=== PATIENT | female | born 1965 | race Two or more races ===

== ENCOUNTER 2021-06-19 07:45 | Inpatient (IN) | payer OTHER ==
[~2021-06-19] VITALS: Ht 175.3 cm; Wt 103.0 kg
[2021-06-19] MEDS ORDERED: NORVASC2.5 M1 PO (08:31)
[2021-06-19] MEDS ORDERED: LIPITOR40 MG PO (08:31)
[2021-06-19] MEDS ORDERED: PREVACID30 M1 PO (08:31)
[2021-06-19] MEDS ORDERED: AVALIDE 300-121 EACH PO (08:31)
[2021-06-19] MEDS ORDERED: SEROQUEL50 MG PO (08:32)
[2021-06-19] MEDS ORDERED: XANAX1 MG PO (08:32)
[2021-06-19] MEDS ORDERED: LYRICA50 MG PO (13:48)
[2021-06-24] MEDS ORDERED: ESCITALOPRAM OX20 MG (08:02)
[2021-06-24] MEDS ORDERED: LORATADINE10 MG (08:03)
[2021-06-24] MEDS ORDERED: MAXIMUM D3325 MCG (08:03)
[2021-06-24] MEDS ORDERED: SENNA8.6 MG (08:03)
[2021-06-24] MEDS ORDERED: FLONASE16 GM (08:03)
[2021-06-24] MEDS ORDERED: MONTELUKAST SOD10 MG (08:03)
[2021-06-24] MEDS ORDERED: IRBESARTAN-HCT1 EACH (08:03)
[2021-06-24] MEDS ORDERED: ARIPIPRAZOLE2 MG (08:04)
[2021-06-24] MEDS ORDERED: AMITRIPTYLINE H10 MG (08:04)
[2021-06-27] MEDS ORDERED: ELIQUIS2.5 MG PO (07:22)
[2021-06-27] MEDS ORDERED: PERCOCET 5-3251 EACH PO (07:22)
[2021-06-27] MEDS ORDERED: CEFADROXIL500 MG PO (07:22)
== END 2021-06-27 12:16 | DRG 470 ==
LOC: SURH 06-24 06:40 → O/R 06-24 06:40 → SURH 06-24 07:00
PROVIDERS: ADMIT Orthopaedic Surgery; ATTEND Orthopaedic Surgery
PROC: 0SRD0J9 Replacement of Left Knee Joint with Synthetic Substitute, Cemented, Open Approach (ICD-10-PCS; principal; 2021-06-24 07:00)
DX: M17.12 Unilateral primary osteoarthritis, left knee (principal); D62 Acute posthemorrhagic anemia; M22.12 Recurrent subluxation of patella, left knee; E66.01 Morbid (severe) obesity due to excess calories; I10 Essential (primary) hypertension; G47.33 Obstructive sleep apnea (adult) (pediatric); Z20.822 Contact with and (suspected) exposure to COVID-19

== ENCOUNTER 2022-03-24 11:11 | Emergency (ER) | payer OTHER ==
[~2022-03-24] VITALS: Ht 175.3 cm; Wt 96.2 kg
[~2022-03-24 11:11] MED LIST: AMITRIPTYLINE H10 MG; ARIPIPRAZOLE2 MG; AVALIDE 300-121 EACH PO; CEFADROXIL500 MG PO; ELIQUIS2.5 MG PO; ESCITALOPRAM OX20 MG; FLONASE16 GM; IRBESARTAN-HCT1 EACH; LIPITOR40 MG PO; LORATADINE10 MG; LYRICA50 MG PO; MAXIMUM D3325 MCG; MONTELUKAST SOD10 MG; NORVASC2.5 M1 PO; PERCOCET 5-3251 EACH PO; PREVACID30 M1 PO; SENNA8.6 MG; SEROQUEL50 MG PO; XANAX1 MG PO
== END 2022-03-24 13:40 | disposition home or self-care (01) ==
LOC: ER 11:11
DX: Z88.6 Allergy status to analgesic agent (principal); S80.02XA Contusion of left knee, initial encounter; W19.XXXA Unspecified fall, initial encounter; Y93.9 Activity, unspecified; Y92.9 Unspecified place or not applicable

== ENCOUNTER 2022-10-21 07:11 | Emergency (ER) | payer OTHER ==
[~2022-10-21] VITALS: Ht 175.3 cm; Wt 96.2 kg
[2022-10-21] MEDS ORDERED: FLUCONAZOLE150 MG PO (08:33)
[2022-10-21] MEDS ORDERED: NORFLEX100MG PO (08:34)
== END 2022-10-21 08:44 | disposition home or self-care (01) ==
LOC: ER 07:11
DX: M25.512 Pain in left shoulder (principal); Z88.6 Allergy status to analgesic agent; Z98.890 Other specified postprocedural states
CPT/HCPCS: 96372; 99284; J2360; J3301

== ENCOUNTER 2023-12-30 08:21 | Outpatient (CLI) | payer OTHER ==
[~2023-12-30 08:21] MED LIST changes: +FLUCONAZOLE150 MG PO; +NORFLEX100MG PO
== END 2023-12-30 08:28 | disposition home or self-care (01) ==
LOC: TOM 08:21 → SONOGRAMA 08:21
PROVIDERS: ATTEND Pathology Anatomic Pathology & Clinical Pathology
DX: D44.0 Neoplasm of uncertain behavior of thyroid gland (principal); E04.1 Nontoxic single thyroid nodule

== ENCOUNTER 2024-03-30 07:54 | Outpatient (CLI) | payer OTHER | END 2024-03-30 07:58 | disposition home or self-care (01) | LOC: SONOGRAMA 07:54 | PROVIDERS: ATTEND Pathology Anatomic Pathology & Clinical Pathology | DX: D34 Benign neoplasm of thyroid gland (principal); E04.1 Nontoxic single thyroid nodule ==